=== PATIENT | female | born 1960 | race Native Hawaiian/Other Pacific Islander ===

== ENCOUNTER 2018-02-05 11:06 | Emergency (ER) | payer OTHER ==
[~2018-02-05] VITALS: Ht 170.2 cm; Wt 94.8 kg
[~2018-02-05 11:06] MED LIST: ADIPEX PO; ADIPEX-P37.5 M1 OR; BROMFED DM PO; CELEXA20 MG PO; MEDROL DOSEPAK4 MG OR; NEXIUM40 M1 PO; PROM25TA52 PO; TRIM800T12 PO; Z-PAK PO
[2018-02-05 11:10] VITALS: TEMP 97.6
[2018-02-05 11:27] LABS: PLATELET COUNT 387 K/uL (152-353)
[2018-02-05 11:36] LABS: POTASSIUM 3.9 mmol/L (3.6-5.2)
[2018-02-05 14:32] VITALS: BP 115/58
== END 2018-02-05 14:45 | disposition home or self-care (01) ==
LOC: ED 11:06
PROVIDERS: Emergency Medicine
DX: R07.89 Other chest pain (principal); I44.4 Left anterior fascicular block
CPT/HCPCS: 36415; 80053; 82550; 82553; 84484; 85027; 85379; 93005; 99283

== ENCOUNTER 2018-02-17 10:09 | Outpatient (CLI) | payer OTHER | END 2018-02-17 19:05 | disposition home or self-care (01) | LOC: RAD 10:09 | DX: J32.9 Chronic sinusitis, unspecified (principal) ==

== ENCOUNTER 2018-02-26 16:56 | Outpatient (CLI) | payer OTHER | END 2018-02-26 22:56 | disposition home or self-care (01) | LOC: CT 16:56 | DX: J01.10 Acute frontal sinusitis, unspecified (principal) ==

== ENCOUNTER 2020-05-02 13:18 | Outpatient (CLI) | payer OTHER | END 2020-05-02 20:30 | disposition home or self-care (01) | LOC: RAD 13:18 | DX: R05 Cough (principal) ==

== ENCOUNTER 2020-06-26 16:21 | Outpatient (CLI) | payer OTHER | END 2020-06-26 23:25 | disposition home or self-care (01) | LOC: CT 16:21 | PROVIDERS: ATTEND Physician Assistant | DX: R79.82 Elevated C-reactive protein (CRP) (principal); R70.0 Elevated erythrocyte sedimentation rate; D72.829 Elevated white blood cell count, unspecified; K57.92 Diverticulitis of intestine, part unspecified, without perforation or abscess without bleeding | CPT/HCPCS: 36415; 82565; 84520; Q9963 ==

== ENCOUNTER 2023-04-03 13:15 | Emergency (ER) | payer OTHER ==
[~2023-04-03] VITALS: Ht 170.2 cm; Wt 97.5 kg
[2023-04-03 14:07] LABS: PLATELET COUNT 313 K/uL (152-353)
[2023-04-03 14:18] LABS: POTASSIUM 4.5 mmol/L (3.6-5.2)
[2023-04-04 08:37] LABS: PLATELET COUNT 286 K/uL (152-353)
[2023-04-04 08:43] LABS: POTASSIUM 3.8 mmol/L (3.6-5.2)
[2023-04-04 09:23] VITALS: BP 121/66; TEMP 98.1
== END 2023-04-04 09:23 | disposition short-term general hospital (02) ==
LOC: ED 13:15
PROVIDERS: Family Medicine
DX: K52.9 Noninfective gastroenteritis and colitis, unspecified (principal); J18.9 Pneumonia, unspecified organism; R09.02 Hypoxemia; R10.9 Unspecified abdominal pain; R11.0 Nausea; Z87.891 Personal history of nicotine dependence; I10 Essential (primary) hypertension; N28.9 Disorder of kidney and ureter, unspecified
CPT/HCPCS: 36415; 36600; 80053; 81002; 82805; 83880; 84443; 84484; 85027; 85379; 87040; 87070; 87205; 87635; 93005; 94664; 96361; 96365; 96366; 96375; 99285; J0456; J1885; J1956; J2405; J2930; Q9963; U0003